=== PATIENT | male | born 1970 | race Caucasian/White ===

== ENCOUNTER → 2016-04-18 | Outpatient (CLI) | payer OTHER ==
--- NOTE | 2016-04-18 15:28 | REP ---
MAXILLOFACIAL CT WITHOUT CONTRAST: HISTORY: Fracture. The sinuses are clear. The ostiomeatal units are patent. The middle and inferior nasal turbinates are partially paradoxical. There is kumar bullosa of the middle nasal turbinates. There is very minimal deviation of the nasal septum to the left. The cribriform plate, medial jimenez of the orbits and optic canals are intact. The carotid canals form a segment of the posterolateral jimenez of the sphenoid sinus. The patient is status post extraction of the third molar tooth of the right mandible. There is a fracture of the overlying buccal cortex. There is slight thickening of the right masseter and platysma muscles. Stranding is present in the overlying subcutaneous tissue. These findings are consistent with edema. Small lymph nodes less than 1 cm in size are present in the internal jugular chains, posterior triangles and submandibular areas. IMPRESSION: 1. There is no acute or chronic sinusitis. 2. The patient is status post extraction of the third molar tooth of the right mandible. There is a fracture of the overlying buccal cortex. Edema is present in the overlying tissues. Signed by Samir Wolf MD 04/18/2016 03:30 P
== END ==
LOC: M RAD 14:09
PROVIDERS: ATTEND Otolaryngology
DX: S02.601A Fracture of unspecified part of body of right mandible, initial encounter for closed fracture (principal); R60.0 Localized edema; Y92.9 Unspecified place or not applicable; Y93.9 Activity, unspecified; Y99.9 Unspecified external cause status; X58.XXXA Exposure to other specified factors, initial encounter; Z98.890 Other specified postprocedural states

== ENCOUNTER 2016-04-29 16:26 | Emergency (ER) | payer OTHER ==
[2016-04-29] MEDS ORDERED: ISOVUE-370 76% 100ML VIAL (Q9967) As Ordered ONE (17:31)
[2016-04-29 17:42] LABS: BASO # 0.1 K/mm3 (0.0-0.2); BASO % 1.3 % (0.0-1.0); EOS # 0.2 K/mm3 (0.0-0.50); EOS % 1.6 % (0.0-3.0); LARGE UNSTAINED CELL # 0.2 K/mm3 (0.0-0.4); LARGE UNSTAINED CELL % 1.5 % (0.0-4.0); LYMPH # 2.3 K/mm3 (1.5-4.5); LYMPH % 21.1 % (24.0-44.0); MEAN CORPUSCULAR HEMOGLOBIN 30.7 pg (27.0-33.0); MEAN CORPUSCULAR HGB CONC 34.4 g/dl (32.0-36.5); MEAN CORPUSCULAR VOLUME 89.5 fl (80.0-96.0); MONO # 0.5 K/mm3 (0.0-0.8); MONO % 4.3 % (0.0-5.0); NEUTROPHILS # 7.3 K/mm3 (1.8-7.7); NEUTROPHILS % 70.2 % (36.0-66.0); PLATELET COUNT, AUTOMATED 326 k/mm3 (150-450); WHITE BLOOD COUNT 10.4 K/mm3 (4.0-10.0)
--- NOTE | 2016-04-29 19:00 | REP ---
CT MAXILLOFACIAL WITH CONTRAST: 04/29/2016. Clinical history: Soft-tissue swelling about the right mandible at the site of third molar extraction with fracture of the buccal cortex. Evaluate for possible abscess, osteomyelitis or other changes. Technique: Dental amalgam creates spray artifact may limit the examination. A bolus of 75 mL of Isovue-370 with axial images and both coronal and sagittal soft tissue and bone window reconstructions provided. Study again shows the sphenoid, maxillary and ethmoid sinuses without opacification. Frontal sinuses have not developed. Orbits and contents symmetric and grossly intact. The skull base shows the mastoids intact and the anterior, middle and portions of posterior cranial fossa visible were unremarkable. The nasal bones without acute finding. There is no deviation of the septum. Orbital floor is intact as are the struts and zygomatic arches along with the medial orbital jimenez. Ring of C1, the upper cervical levels and the dens all unremarkable. The craniocervical junction intact. Maxillary spine shows no avulsion or fracture and the maxillary dentition shows absent third molars there. On the mandible on the left there is a third molar, which is uninterrupted. On the right side with the molar has been extracted and there is a fracture of the lateral wall or buccal cortex. Some resorption of bone has occurred with that lateral wall fragment appearing to float at the fracture site. There is some soft tissue swelling adjacent. I do not see definite abnormal enhancement. I could not define any other significant interval change other than some resorption fracture fragment. Parapharyngeal spaces, hypopharynx, oropharynx and nasopharynx all intact. Ostiomeatal complexes intact as are the middle turbinates. Impression: 1. Status post third molar extraction on the right mandible with buccal cortex fracture and some adjacent swelling but no compelling evidence for abscess or fluid collection at this time in the soft tissues adjacent to the mandible. 2. Other findings as described previously and stable. Some resorption of bone about the lateral cortex fracture fragment. Signed by Colt Sanchez MD 04/29/2016 07:43 P
[2016-04-29] MEDS ORDERED: AUGMENTIN 875 MG TAB As Ordered ONE (19:09)
--- NOTE | 2016-04-29 19:23 | EDDOCDS ---
Nurse's Notes [facility] Name: Yfn Benedict Age: 45 yrs Sex: Male : 1970 Arrival Date: 04/29/2016 Time: 16:26 Bed TR8 Private MD: Other - Complete Info On Cds Diagnosis: Cellulitis and acute lymphangitis of face Presentation: 04/29 16:30 Presenting complaint: Patient states: Pt presents with c/o Pt presents with right sided dls jaw pain after a tooth removal in February pt was told he had a fracture. Pt states last 36 hours pt has had increased pain and swelling. Adult Sepsis Screening: The patient does not have new or worsening altered mentation. Patient's respiratory rate is less than 22. Systolic blood pressure is greater than 100. Patient has a qSOFA score of 0- Negative Sepsis Screen. Suicide/Homicide risk assessment- the patient denies having any suicidal and/or homicidal ideations and does not present with any other emotional, behavioral or mental health complaints. 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 Transition of care: patient was not received from another setting of care. 16:30 Acuity: SAM Level 3 dls 16:30 Method Of Arrival: Walkin/Carried/Asstd dls Triage Assessment: 16:36 General: Appears slender, uncomfortable, well developed, Behavior is cooperative. Pain: dls Pain currently is 4 out of 10 on a pain scale. HIV screening NA for this visit Offered previously. Historical: - Allergies: no known allergies; - Home Meds: 1. Tylenol 1000 mg Oral three times a day 2. ibuprofen 800 mg Oral tab 1 tab 3 times per day 3. Neurontin 600 mg Oral tab 1 tab 3 times per day 4. Crestor 10 mg Oral tab 1 tab once daily 5. Melatonin 6mg Oral nightly - PMHx: Hypercholesterolemia; Chronic Back pain; Arthritis; - PSHx: Rhinoplasty; shoulder left; achillies tendon repair right; - Social history: Smoking status: Patient/guardian denies using No barriers to communication noted, The patient speaks fluent Georgian. - Family history: Not pertinent. - : The pt / caregiver states he / she is not on anticoagulants. Home medication list is obtained from the patient, Unable to Verify Home Med List with the patient / caregiver. - Exposure Risk Screening:: None identified. Screenin:20 Screening information is obtained from the patient. Fall risk: No risks identified. cz Assistance ADL's: requires no assistance with activities of daily living. Abuse/DV Screen: The patient / caregiver reports he/she is: not in a situation that causes fear, pain or injury. Nutritional screening: No deficits noted. home support is adequate. Assessment: 19:20 Reassessment: Patient appears in no apparent distress at this time. cz Vital Signs: 16:29 BP 122 / 84; Pulse 67; Resp 18 S; Temp 97.9(O); Pulse Ox 100% on R/A; Weight 78.47 kg gr2 (R); Height 68 in. (172.72 cm) (R); Pain 6/10; 19:20 BP 127 / 89; Pulse 64; Resp 16; Temp 99(TE); cz 16:29 Body Mass Index 26.30 (78.47 kg, 172.72 cm) gr2 Vitals: 16:29 Log In Time: April 29, 2016 at 16:29. gr2 ED Course: 16:28 Patient visited by Bruce Garcia. gr2 16:28 Other - Complete Info On Cds is Private Physician. gr2 16:28 Patient moved to Waiting gr2 16:29 Patient visited by Bruce Garcia. gr2 16:29 Patient moved to Pre RCE gr2 16:32 Triage Initiated dls 16:37 Patient moved to Triage 1 dls 16:44 [facility]. jk8 16:44 Ari Hogan MD is Attending Physician. jk8 16:44 Patient visited by Bobby Louis PA-C. jk8 17:12 Patient moved to TR1 ar3 17:12 CBC with Diff Sent. ar3 17:37 Patient moved to PR2 / 26 ar3 17:39 [facility] Payment Agreement was scanned into [employer] and attached to record. gjb 17:41 Patient name changed from Yfn\S\\S\Jak\S\ to Yfn\S\ \S\Jak. EDMS 17:52 Inserted saline lock: 20 gauge in left antecubital area The patient tolerated the kcs procedure well. 18:40 Patient visited by Gretchen Sam RN. ms18 19:17 CT Maxillofacial with contrast Returned. EDMS 19:19 Patient moved to TR8 cz 19:20 The patient / caregiver is instructed regarding the plan of care and ED course. cz 19:20 No procedures done that require assistance. cz Administered Medications: 19:20 Drug: Amoxicillin-Clavulanate 1 tabs [amoxicillin 875 mg-potassium clavulanate 125 mg cz tablet (1 tabs)] Route: PO; Order Results: Lab Order: CBC with Diff; SPEC'M 04/29/16 17:12 Test: WHITE BLOOD COUNT; Value: 10.4; Range: 4.0-10.0; Abnormal: Above high normal; Units: K/mm3; Status: F Test: RED BLOOD COUNT; Value: 4.34; Range: 4.30-6.10; Units: M/mm3; Status: F Test: HEMOGLOBIN; Value: 13.4; Range: 14.0-18.0; Abnormal: Below low normal; Units: g/dl; Status: F Test: HEMATOCRIT; Value: 38.9; Range: 42.0-52.0; Abnormal: Below low normal; Units: %; Status: F Test: MEAN CORPUSCULAR VOLUME; Value: 89.5; Range: 80.0-96.0; Units: fl; Status: F Test: MEAN CORPUSCULAR HEMOGLOBIN; Value: 30.7; Range: 27.0-33.0; Units: pg; Status: F Test: MEAN CORPUSCULAR HGB CONC; Value: 34.4; Range: 32.0-36.5; Units: g/dl; Status: F Test: RED CELL DISTRIBUTION WIDTH; Value: 13.0; Range: 11.5-14.5; Units: %; Status: F Test: PLATELET COUNT, AUTOMATED; Value: 326; Range: 150-450; Units: k/mm3; Status: F Test: NEUTROPHILS %; Value: 70.2; Range: 36.0-66.0; Abnormal: Above high normal; Units: %; Status: F Test: LYMPH %; Value: 21.1; Range: 24.0-44.0; Abnormal: Below low normal; Units: %; Status: F Test: MONO %; Value: 4.3; Range: 0.0-5.0; Units: %; Status: F Test: EOS %; Value: 1.6; Range: 0.0-3.0; Units: %; Status: F Test: BASO %; Value: 1.3; Range: 0.0-1.0; Abnormal: Above high normal; Units: %; Status: F Test: LARGE UNSTAINED CELL %; Value: 1.5; Range: 0.0-4.0; Units: %; Status: F Test: NEUTROPHILS #; Value: 7.3; Range: 1.8-7.7; Units: K/mm3; Status: F Test: LYMPH #; Value: 2.3; Range: 1.5-4.5; Units: K/mm3; Status: F Test: MONO #; Value: 0.5; Range: 0.0-0.8; Units: K/mm3; Status: F Test: EOS #; Value: 0.2; Range: 0.0-0.50; Units: K/mm3; Status: F Test: BASO #; Value: 0.1; Range: 0.0-0.2; Units: K/mm3; Status: F Test: LARGE UNSTAINED CELL #; Value: 0.2; Range: 0.0-0.4; Units: K/mm3; Status: F Radiology Order: CT Maxillofacial with contrast Test: CT Maxillofacial with contrast REASON FOR EXAMINATION: rule out osteo right mandibular Fx.; CT maxillofacial with contrast: 04/29/2016.; ; Clinical history: Soft-tissue swelling about the right mandible at the site of; third molar extraction with fracture of the buccal cortex. Evaluate for possible; abscess, osteomyelitis or other changes.; ; Technique: Dental amalgam creates spray artifact may limit the examination. A; bolus of 75 mL of Isovue-370 with axial images and both coronal and sagittal soft; tissue and bone window reconstructions provided.; ; Study again shows the sphenoid, maxillary and ethmoid sinuses without; opacification. Frontal sinuses have not developed. Orbits and contents symmetric; and grossly intact. The skull base shows the mastoids intact and the anterior,; middle and portions of posterior cranial fossa visible were unremarkable. The; nasal bones without acute finding. There is no deviation of the septum. Orbital; floor is intact as are the struts and zygomatic arches along with the medial; orbital jimenez. Ring of C1, the upper cervical levels and the dens all; unremarkable. The craniocervical junction intact. Maxillary spine shows no; avulsion or fracture and the maxillary dentition shows absent third molars there.; On the mandible on the left there is a third molar, which is uninterrupted. On; the right side with the molar has been extracted and there is a fracture of the; lateral wall or buccal cortex. Some resorption of bone has occurred with that; lateral wall fragment appearing to float at the fracture site. There is some; soft tissue swelling adjacent. I do not see definite abnormal enhancement. I; could not define any other significant interval change other than some resorption; fracture fragment. Parapharyngeal spaces, hypopharynx, oropharynx and; nasopharynx all intact.; ; Ostiomeatal complexes intact as are the middle turbinates.; ; Impression:; Status post third molar extraction on the right mandible with buccal cortex; fracture and some adjacent swelling but no compelling evidence for abscess or; fluid collection at this time in the soft tissues adjacent to the mandible.; Other findings as described previously and stable. Some resorption of bone about; the lateral cortex fracture fragment.; ; ; ; ; Unreviewed; Outcome: 19:02 Discharge ordered by Provider. jk8 19:20 Discharge Assessment: Patient awake, alert and oriented x 3. No cognitive and/or cz functional deficits noted. Patient verbalized understanding of disposition instructions. patient administered narcotics - no. The following High Risk Discharge criteria are identified: None. Discharged to home ambulatory. Condition: stable. Discharge instructions given to patient, Instructed on discharge instructions, follow up and referral plans. medication usage, Demonstrated understanding of instructions, medications, Pt was receptive of discharge instructions/ teaching. Prescriptions given X 1. CT Study completed. Property :Personal belongings accompany Pt. 19:22 Patient left the ED. cz Signatures: Dispatcher [employer] EDMS Pallavi Bunch RN RN kcs Juany Dunn RN RN dls Zecher, Calvin, RN RN cz Talia Tate, Z OS MAINFRAME SYSTEMS PROGRAMMER Z OS MAINFRAME SYSTEMS PROGRAMMER ar3 Bruce Garcia gr2 Gretchen Sam RN RN ms18 Bobby Louis, PA-C PAAnC Ginny Mccullough MTDD
--- NOTE | 2016-04-29 19:23 | EDDOCDS ---
Physician Documentation [facility] Name: Yfn Benedict Age: 45 yrs Sex: Male : 1970 Arrival Date: 04/29/2016 Time: 16:26 Bed TR8 Private MD: Other - Complete Info On Cds Disposition: 04/29/16 19:02 Discharged to Home/Self Care. Impression: Cellulitis and acute lymphangitis of face. - Condition is Stable. - Prescriptions for Augmentin 875- 125 mg Oral Tablet - take 1 tablet by ORAL route every 12 hours for 10 days; 20 tablet. - Medication Reconciliation, Local Pharmacy Hours form. - Follow up: Emergency Department; When: As soon as possible; Reason: Fever > 102F, Worsening of conditions. Follow up: Private Physician; When: Tomorrow; Reason: Recheck today's complaints. - Problem is new. - Symptoms have worsened. Historical: - Allergies: no known allergies; - Home Meds: 1. Tylenol 1000 mg Oral three times a day 2. ibuprofen 800 mg Oral tab 1 tab 3 times per day 3. Neurontin 600 mg Oral tab 1 tab 3 times per day 4. Crestor 10 mg Oral tab 1 tab once daily 5. Melatonin 6mg Oral nightly - PMHx: Hypercholesterolemia; Chronic Back pain; Arthritis; - PSHx: Rhinoplasty; shoulder left; achillies tendon repair right; - Social history: Smoking status: Patient/guardian denies using No barriers to communication noted, The patient speaks fluent [place]inean. - Family history: Not pertinent. - : The pt / caregiver states he / she is not on anticoagulants. Home medication list is obtained from the patient, Unable to Verify Home Med List with the patient / caregiver. - Exposure Risk Screening:: None identified. Vital Signs: 04/29 16:29 BP 122 / 84; Pulse 67; Resp 18 S; Temp 97.9(O); Pulse Ox 100% on R/A; Weight 78.47 kg / gr2 173 lbs (R); Height 68 in. (172.72 cm) (R); Pain 6/10; 19:20 BP 127 / 89; Pulse 64; Resp 16; Temp 99(TE); cz 16:29 Body Mass Index 26.30 (78.47 kg, 172.72 cm) gr2 MDM: 17:09 CBC with Diff Ordered. EDMS 17:15 Financial registration complete. gjb 17:30 CT Maxillofacial with contrast Ordered. EDMS 17:39 [facility] Payment Agreement was scanned into [employer] and attached to record. gjb 18:06 CBC with Diff Reviewed. jk8 19:00 IV Saline Lock ordered. kcs 19:05 Amoxicillin-Clavulanate 875 mg 1 tabs PO once ordered. jk8 Administered Medications: 19:20 Drug: Amoxicillin-Clavulanate 1 tabs [amoxicillin 875 mg-potassium clavulanate 125 mg cz tablet (1 tabs)] Route: PO; Signatures: Dispatcher [employer] EDMS Pallavi Bunch RN RN kcs Juany Dunn RN RN dls Zecher, Calvin, RN RN cz Bobby Louis PA-C PA-C jk8 Beck, Gabriela gjb The chart was reviewed and I authenticate all verbal orders and agree with the evaluation and treatment provided.Corrections: (The following items were deleted from the chart) 17:34 17:09 CT Head with contrast+CT ordered. EDPR EDMS Attachments: 17:39 [facility] Payment Agreement gjb MTDD
--- NOTE | 2016-05-01 20:23 | EDDOCDS ---
Physician Documentation [facility] Name: Yfn Benedict Age: 45 yrs Sex: Male : 1970 Arrival Date: 04/29/2016 Time: 16:26 Bed TR8 Private MD: Other - Complete Info On Cds Disposition: 04/29/16 19:02 Discharged to Home/Self Care. Impression: Cellulitis and acute lymphangitis of face. - Condition is Stable. - Prescriptions for Augmentin 875- 125 mg Oral Tablet - take 1 tablet by ORAL route every 12 hours for 10 days; 20 tablet. - Medication Reconciliation, Local Pharmacy Hours form. - Follow up: Emergency Department; When: As soon as possible; Reason: Fever > 102F, Worsening of conditions. Follow up: Private Physician; When: Tomorrow; Reason: Recheck today's complaints. - Problem is new. - Symptoms have worsened. Historical: - Allergies: no known allergies; - Home Meds: 1. Tylenol 1000 mg Oral three times a day 2. ibuprofen 800 mg Oral tab 1 tab 3 times per day 3. Neurontin 600 mg Oral tab 1 tab 3 times per day 4. Crestor 10 mg Oral tab 1 tab once daily 5. Melatonin 6mg Oral nightly - PMHx: Hypercholesterolemia; Chronic Back pain; Arthritis; - PSHx: Rhinoplasty; shoulder left; achillies tendon repair right; - Social history: Smoking status: Patient/guardian denies using No barriers to communication noted, The patient speaks fluent South Sudanese. - Family history: Not pertinent. - : The pt / caregiver states he / she is not on anticoagulants. Home medication list is obtained from the patient, Unable to Verify Home Med List with the patient / caregiver. - Exposure Risk Screening:: None identified. Vital Signs: 04/29 16:29 BP 122 / 84; Pulse 67; Resp 18 S; Temp 97.9(O); Pulse Ox 100% on R/A; Weight 78.47 kg / gr2 173 lbs (R); Height 68 in. (172.72 cm) (R); Pain 6/10; 19:20 BP 127 / 89; Pulse 64; Resp 16; Temp 99(TE); cz 16:29 Body Mass Index 26.30 (78.47 kg, 172.72 cm) gr2 MDM: 17:09 CBC with Diff Ordered. EDMS 17:15 Financial registration complete. gjb 17:30 CT Maxillofacial with contrast Ordered. EDMS 17:39 [facility] Payment Agreement was scanned into [employer] and attached to record. gjb 18:06 CBC with Diff Reviewed. jk8 19:00 IV Saline Lock ordered. kcs 19:05 Amoxicillin-Clavulanate 875 mg 1 tabs PO once ordered. jk8 21:47 T-Sheet-- Draft Copy was scanned into [employer] and attached to record. klr Administered Medications: 19:20 Drug: Amoxicillin-Clavulanate 1 tabs [amoxicillin 875 mg-potassium clavulanate 125 mg cz tablet (1 tabs)] Route: PO; Signatures: Dispatcher [employer] EDMS Pallavi Bunch RN RN kcs Scott, Debra, RN RN dls Zecher, Calvin, RN RN cz Kenniff, Joseph, PA-C PA-C jk8 Beck, Gabriela gjb Redder, Kathie klr The chart was reviewed and I authenticate all verbal orders and agree with the evaluation and treatment provided.Corrections: (The following items were deleted from the chart) 17:34 17:09 CT Head with contrast+CT ordered. EDDC EDMS Attachments: 17:39 [facility] Payment Agreement gjb 21:47 T-Sheet-- Draft Copy klr Chart Complete MTDD
--- NOTE | 2016-05-01 20:23 | EDDOCDS ---
Nurse's Notes [facility] Name: Yfn Benedict Age: 45 yrs Sex: Male : 1970 Arrival Date: 04/29/2016 Time: 16:26 Bed TR8 Private MD: Other - Complete Info On Cds Diagnosis: Cellulitis and acute lymphangitis of face Presentation: 04/29 16:30 Presenting complaint: Patient states: Pt presents with c/o Pt presents with right sided dls jaw pain after a tooth removal in February pt was told he had a fracture. Pt states last 36 hours pt has had increased pain and swelling. Adult Sepsis Screening: The patient does not have new or worsening altered mentation. Patient's respiratory rate is less than 22. Systolic blood pressure is greater than 100. Patient has a qSOFA score of 0- Negative Sepsis Screen. Suicide/Homicide risk assessment- the patient denies having any suicidal and/or homicidal ideations and does not present with any other emotional, behavioral or mental health complaints. Status: The patient is an active duty fire sprinkler service technician. Transition of care: patient was not received from another setting of care. 16:30 Acuity: SAM Level 3 dls 16:30 Method Of Arrival: Walkin/Carried/Asstd dls Triage Assessment: 16:36 General: Appears slender, uncomfortable, well developed, Behavior is cooperative. Pain: dls Pain currently is 4 out of 10 on a pain scale. HIV screening NA for this visit Offered previously. Historical: - Allergies: no known allergies; - Home Meds: 1. Tylenol 1000 mg Oral three times a day 2. ibuprofen 800 mg Oral tab 1 tab 3 times per day 3. Neurontin 600 mg Oral tab 1 tab 3 times per day 4. Crestor 10 mg Oral tab 1 tab once daily 5. Melatonin 6mg Oral nightly - PMHx: Hypercholesterolemia; Chronic Back pain; Arthritis; - PSHx: Rhinoplasty; shoulder left; achillies tendon repair right; - Social history: Smoking status: Patient/guardian denies using No barriers to communication noted, The patient speaks fluent Cook Islander. - Family history: Not pertinent. - : The pt / caregiver states he / she is not on anticoagulants. Home medication list is obtained from the patient, Unable to Verify Home Med List with the patient / caregiver. - Exposure Risk Screening:: None identified. Screenin:20 Screening information is obtained from the patient. Fall risk: No risks identified. cz Assistance ADL's: requires no assistance with activities of daily living. Abuse/DV Screen: The patient / caregiver reports he/she is: not in a situation that causes fear, pain or injury. Nutritional screening: No deficits noted. home support is adequate. Assessment: 19:20 Reassessment: Patient appears in no apparent distress at this time. cz Vital Signs: 16:29 BP 122 / 84; Pulse 67; Resp 18 S; Temp 97.9(O); Pulse Ox 100% on R/A; Weight 78.47 kg gr2 (R); Height 68 in. (172.72 cm) (R); Pain 6/10; 19:20 BP 127 / 89; Pulse 64; Resp 16; Temp 99(TE); cz 16:29 Body Mass Index 26.30 (78.47 kg, 172.72 cm) gr2 Vitals: 16:29 Log In Time: April 29, 2016 at 16:29. gr2 ED Course: 16:28 Patient visited by Bruce Garcia. gr2 16:28 Other - Complete Info On Cds is Private Physician. gr2 16:28 Patient moved to Waiting gr2 16:29 Patient visited by Bruce Garcia. gr2 16:29 Patient moved to Pre RCE gr2 16:32 Triage Initiated dls 16:37 Patient moved to Triage 1 dls 16:44 [facility]. jk8 16:44 Ari Hogan MD is Attending Physician. jk8 16:44 Patient visited by Bobby Louis PA-C. jk8 17:12 Patient moved to TR1 ar3 17:12 CBC with Diff Sent. ar3 17:37 Patient moved to PR2 / 26 ar3 17:39 [facility] Payment Agreement was scanned into [employer] and attached to record. gjb 17:41 Patient name changed from Yfn\S\\S\Jak\S\ to Yfn\S\ \S\Jak. EDMS 17:52 Inserted saline lock: 20 gauge in left antecubital area The patient tolerated the kcs procedure well. 18:40 Patient visited by Gretchen Sam RN. ms18 19:17 CT Maxillofacial with contrast Returned. EDMS 19:19 Patient moved to TR8 cz 19:20 The patient / caregiver is instructed regarding the plan of care and ED course. cz 19:20 No procedures done that require assistance. cz 21:47 T-Sheet-- Draft Copy was scanned into [employer] and attached to record. klr Administered Medications: 19:20 Drug: Amoxicillin-Clavulanate 1 tabs [amoxicillin 875 mg-potassium clavulanate 125 mg cz tablet (1 tabs)] Route: PO; Order Results: Lab Order: CBC with Diff; SPEC'M 04/29/16 17:12 Test: WHITE BLOOD COUNT; Value: 10.4; Range: 4.0-10.0; Abnormal: Above high normal; Units: K/mm3; Status: F Test: RED BLOOD COUNT; Value: 4.34; Range: 4.30-6.10; Units: M/mm3; Status: F Test: HEMOGLOBIN; Value: 13.4; Range: 14.0-18.0; Abnormal: Below low normal; Units: g/dl; Status: F Test: HEMATOCRIT; Value: 38.9; Range: 42.0-52.0; Abnormal: Below low normal; Units: %; Status: F Test: MEAN CORPUSCULAR VOLUME; Value: 89.5; Range: 80.0-96.0; Units: fl; Status: F Test: MEAN CORPUSCULAR HEMOGLOBIN; Value: 30.7; Range: 27.0-33.0; Units: pg; Status: F Test: MEAN CORPUSCULAR HGB CONC; Value: 34.4; Range: 32.0-36.5; Units: g/dl; Status: F Test: RED CELL DISTRIBUTION WIDTH; Value: 13.0; Range: 11.5-14.5; Units: %; Status: F Test: PLATELET COUNT, AUTOMATED; Value: 326; Range: 150-450; Units: k/mm3; Status: F Test: NEUTROPHILS %; Value: 70.2; Range: 36.0-66.0; Abnormal: Above high normal; Units: %; Status: F Test: LYMPH %; Value: 21.1; Range: 24.0-44.0; Abnormal: Below low normal; Units: %; Status: F Test: MONO %; Value: 4.3; Range: 0.0-5.0; Units: %; Status: F Test: EOS %; Value: 1.6; Range: 0.0-3.0; Units: %; Status: F Test: BASO %; Value: 1.3; Range: 0.0-1.0; Abnormal: Above high normal; Units: %; Status: F Test: LARGE UNSTAINED CELL %; Value: 1.5; Range: 0.0-4.0; Units: %; Status: F Test: NEUTROPHILS #; Value: 7.3; Range: 1.8-7.7; Units: K/mm3; Status: F Test: LYMPH #; Value: 2.3; Range: 1.5-4.5; Units: K/mm3; Status: F Test: MONO #; Value: 0.5; Range: 0.0-0.8; Units: K/mm3; Status: F Test: EOS #; Value: 0.2; Range: 0.0-0.50; Units: K/mm3; Status: F Test: BASO #; Value: 0.1; Range: 0.0-0.2; Units: K/mm3; Status: F Test: LARGE UNSTAINED CELL #; Value: 0.2; Range: 0.0-0.4; Units: K/mm3; Status: F Radiology Order: CT Maxillofacial with contrast Test: CT Maxillofacial with contrast REASON FOR EXAMINATION: rule out osteo right mandibular Fx.; CT MAXILLOFACIAL WITH CONTRAST: 04/29/2016.; ; Clinical history: Soft-tissue swelling about the right mandible at the site of; third molar extraction with fracture of the buccal cortex. Evaluate for possible; abscess, osteomyelitis or other changes.; ; Technique: Dental amalgam creates spray artifact may limit the examination. A; bolus of 75 mL of Isovue-370 with axial images and both coronal and sagittal soft; tissue and bone window reconstructions provided.; ; Study again shows the sphenoid, maxillary and ethmoid sinuses without; opacification. Frontal sinuses have not developed. Orbits and contents symmetric; and grossly intact. The skull base shows the mastoids intact and the anterior,; middle and portions of posterior cranial fossa visible were unremarkable. The; nasal bones without acute finding. There is no deviation of the septum. Orbital; floor is intact as are the struts and zygomatic arches along with the medial; orbital jimenez. Ring of C1, the upper cervical levels and the dens all; unremarkable. The craniocervical junction intact. Maxillary spine shows no; avulsion or fracture and the maxillary dentition shows absent third molars there.; On the mandible on the left there is a third molar, which is uninterrupted. On; the right side with the molar has been extracted and there is a fracture of the; lateral wall or buccal cortex. Some resorption of bone has occurred with that; lateral wall fragment appearing to float at the fracture site. There is some; soft tissue swelling adjacent. I do not see definite abnormal enhancement. I; could not define any other significant interval change other than some resorption; fracture fragment. Parapharyngeal spaces, hypopharynx, oropharynx and; nasopharynx all intact.; ; Ostiomeatal complexes intact as are the middle turbinates.; ; Impression:; ; 1. Status post third molar extraction on the right mandible with buccal cortex; fracture and some adjacent swelling but no compelling evidence for abscess or; fluid collection at this time in the soft tissues adjacent to the mandible.; ; 2. Other findings as described previously and stable. Some resorption of bone; about the lateral cortex fracture fragment.; ; ; Signed by; Colt Sanchez MD 04/29/2016 07:43 P; Outcome: 19:02 Discharge ordered by Provider. jk8 19:20 Discharge Assessment: Patient awake, alert and oriented x 3. No cognitive and/or cz functional deficits noted. Patient verbalized understanding of disposition instructions. patient administered narcotics - no. The following High Risk Discharge criteria are identified: None. Discharged to home ambulatory. Condition: stable. Discharge instructions given to patient, Instructed on discharge instructions, follow up and referral plans. medication usage, Demonstrated understanding of instructions, medications, Pt was receptive of discharge instructions/ teaching. Prescriptions given X 1. CT Study completed. Property :Personal belongings accompany Pt. 19:22 Patient left the ED. cz Signatures: Dispatcher [employer] EDMS Pallavi Bunch, REBECA RN Juany Evans RN RN dls Zecher, Calvin, RN RN cz Talia Tate, CD REACTOR OPERATOR CD REACTOR OPERATOR ar3 Bruce Garcia gr2 Gretchen Sam RN RN ms18 Bobby Louis, PA-Debi PA-C jk8 Ginny Avila Kathie klr Chart Complete MTDD
--- NOTE | 2016-05-01 20:23 | EDDOCDS ---
Physician Documentation [facility] Name: Yfn Benedict Age: 45 yrs Sex: Male : 1970 Arrival Date: 04/29/2016 Time: 16:26 Bed TR8 Private MD: Other - Complete Info On Cds Disposition: 04/29/16 19:02 Discharged to Home/Self Care. Impression: Cellulitis and acute lymphangitis of face. - Condition is Stable. - Prescriptions for Augmentin 875- 125 mg Oral Tablet - take 1 tablet by ORAL route every 12 hours for 10 days; 20 tablet. - Medication Reconciliation, Local Pharmacy Hours form. - Follow up: Emergency Department; When: As soon as possible; Reason: Fever > 102F, Worsening of conditions. Follow up: Private Physician; When: Tomorrow; Reason: Recheck today's complaints. - Problem is new. - Symptoms have worsened. Historical: - Allergies: no known allergies; - Home Meds: 1. Tylenol 1000 mg Oral three times a day 2. ibuprofen 800 mg Oral tab 1 tab 3 times per day 3. Neurontin 600 mg Oral tab 1 tab 3 times per day 4. Crestor 10 mg Oral tab 1 tab once daily 5. Melatonin 6mg Oral nightly - PMHx: Hypercholesterolemia; Chronic Back pain; Arthritis; - PSHx: Rhinoplasty; shoulder left; achillies tendon repair right; - Social history: Smoking status: Patient/guardian denies using No barriers to communication noted, The patient speaks fluent Burmese. - Family history: Not pertinent. - : The pt / caregiver states he / she is not on anticoagulants. Home medication list is obtained from the patient, Unable to Verify Home Med List with the patient / caregiver. - Exposure Risk Screening:: None identified. Vital Signs: 04/29 16:29 BP 122 / 84; Pulse 67; Resp 18 S; Temp 97.9(O); Pulse Ox 100% on R/A; Weight 78.47 kg / gr2 173 lbs (R); Height 68 in. (172.72 cm) (R); Pain 6/10; 19:20 BP 127 / 89; Pulse 64; Resp 16; Temp 99(TE); cz 16:29 Body Mass Index 26.30 (78.47 kg, 172.72 cm) gr2 MDM: 17:09 CBC with Diff Ordered. EDMS 17:15 Financial registration complete. gjb 17:30 CT Maxillofacial with contrast Ordered. EDMS 17:39 [facility] Payment Agreement was scanned into [employer] and attached to record. gjb 18:06 CBC with Diff Reviewed. jk8 19:00 IV Saline Lock ordered. kcs 19:05 Amoxicillin-Clavulanate 875 mg 1 tabs PO once ordered. jk8 21:47 T-Sheet-- Draft Copy was scanned into [employer] and attached to record. klr Administered Medications: 19:20 Drug: Amoxicillin-Clavulanate 1 tabs [amoxicillin 875 mg-potassium clavulanate 125 mg cz tablet (1 tabs)] Route: PO; Signatures: Dispatcher [employer] EDMS Pallavi Bunch RN RN kcs Scott, Debra, RN RN dls Zecher, Calvin, RN RN cz Kenniff, Joseph, PA-C PA-C jk8 Beck, Gabriela gjb Redder, Kathie klr The chart was reviewed and I authenticate all verbal orders and agree with the evaluation and treatment provided.Corrections: (The following items were deleted from the chart) 17:34 17:09 CT Head with contrast+CT ordered. EDSD EDMS Attachments: 17:39 [facility] Payment Agreement gjb 21:47 T-Sheet-- Draft Copy klr Chart Complete MTDD
== END 2016-04-29 19:22 | disposition home or self-care (01) ==
LOC: M ED 16:26
DX: L03.211 Cellulitis of face (principal); E78.00 Pure hypercholesterolemia, unspecified; G89.29 Other chronic pain; M19.90 Unspecified osteoarthritis, unspecified site; Z79.899 Other long term (current) drug therapy
CPT/HCPCS: 36415; 70487; 85025; 99284; Q9967

== ENCOUNTER → 2018-06-27 | Outpatient (REF) | payer OTHER | LOC: M SFHCLERA 09:33 | PROVIDERS: ATTEND Nurse Practitioner Family | DX: R68.89 Other general symptoms and signs (principal) ==